=== PATIENT | male | born 1940 | race Caucasian/White ===

== ENCOUNTER → 2018-05-29 14:23 | Outpatient (CLI) | payer MEDICARE, OTHER ==
[2015-04-29 08:23] VITALS: BMI 29.4
[~2018-05-29 14:23] MED LIST: DIOVAN80 MG PO; FLUTICASONE PRO16 GM NASAL; SINGULAIR10 MG PO
== END | disposition home or self-care (01) ==
LOC: D.LABREF 14:23
DX: M17.11 Unilateral primary osteoarthritis, right knee (principal)

== ENCOUNTER 2018-07-31 10:00 | Inpatient (IN) | payer MEDICARE, OTHER ==
[~2018-07-31] VITALS: Ht 180.3 cm; Wt 92.7 kg
--- NOTE | ~2018-07-31 | OP ---
PATIENT NAME: BETY LOPEZ MEDICAL RECORD: [id number] :36 LOCATION:D[facility] [id number] ADMISSION DATE:08/05/18 SURGEON: ARGELIA CAMPBELL MD DATE OF OPERATION: 08/05/2018 PREOPERATIVE DIAGNOSIS: Severe degenerative arthritis of the right knee. POSTOPERATIVE DIAGNOSIS: Severe degenerative arthritis of the right knee. PROCEDURE: Right total knee arthroplasty. SURGEON: Argelia Campbell MD ANESTHESIA: General. INTRAOPERATIVE COMPLICATIONS: None. SUMMARY OF PATHOLOGIC FINDINGS: The patient was indeed found to have substantial osteoarthritis. IMPLANTS USED: A size 6 distal femur, a size 11 polyethylene insert, and a size 7 tibial baseplate. Press fit with patellar component of 33. OPERATIVE SUMMARY IN DETAIL: After obtaining the appropriate preoperative orthopedic surgery consent as well as anesthetic consultation, evaluation and clearance, the patient was brought to the operating room and placed on the operating table in the supine position. After general laryngeal mask airway was administered, tourniquet was placed on the proximal aspect of the right lower extremity. Right lower extremity was then prepped and draped in routine sterile fashion. The leg was elevated and exsanguinated, tourniquet was inflated to 350 mmHg. Routine midline incision was taken down for paramedian arthrotomy. Paramedian arthrotomy was performed. Patella was everted and the distal femur was exposed. Soft tissue excision was done in the usual fashion followed by intramedullary guidance for cutting the distal femur. Distal femur was cut followed by complete exposure of the proximal tibia. After complete exposure of the proximal tibia, the proximal tibia was cut. Measurements taken. It was felt that a size 7 was the best for a good peripheral fit. Chamfer cuts were made initially for a size 7 and then downsized to a size 6 for better anterior surface matching. The trial implants were put into place corresponding to the above-mentioned implants. A distal femoral and proximal tibial final adjustments were made. This was then followed by excision of the arthritic patella articular surface. Appropriate measurements were taken. Final patellar preparations were made as well. Copious pulsatile lavage irrigation was then followed by implantation of the press-fit components. After all components were put into place. The knee was taken through range of motion and found to be stable in all planes. Patellar preparations before closure included a gram of TXA intraarticularly and the periarticular soft tissues as well as a gram of vancomycin. The paramedian arthrotomy was closed with #2 Ethibond followed #1 Vicryl, 2-0 Vicryl and skin jillian. Sterile dressings were applied. The patient was awakened and taken to recovery in stable condition. All final needle and sponge counts were correct. TRANSINT:[id number] Voice Confirmation ID: [id number] DOCUMENT ID: [id number] OPERATIVE REPORT [id number] BETY LOPEZ MD, ARGELIA MO at 0844 CC: [id number] DICTATION DATE: 08/09/18 1316 LOCAL COMPANY HAZMAT DRIVER: 08/09/18 1347 DIS IN 08/08/18 [facility] [address] [place] [address]
--- NOTE | ~2018-07-31 | MORECARE ---
CASE MANAGEMENT DISCHARGE SUMMARY PATIENT: BETY LOPEZ UNIT: [id number] ADM DATE: 08/05/18 AGE: 77 : 38 SEX: M ROOM/BED: D.2209 AUTHOR: SAURABH ABERNATHY PHYSICIAN: REFERRING PHYSICIAN: ARGELIA CAMPBELL MD DATE OF SERVICE: 08/06/18 Discharge Plan Patient Name: BETY LOPEZ [facility] [facility] 1940 Planned Disposition: Anticipated Discharge Date: Discharge Date: Expected LOS: Initial Reviewer: [email or web address] Initial Review Date: 08/05/2018 Generated: 08/06/18 11:18 am Patient Name: BETY LOPEZ Page [id number] at 1018 All edits/amendments must be made on the electronic document DICTATION DATE: 08/06/18 1017 SERVICES ACCOUNT MANAGER: ANGELA 08/06/18 1017 RPT#: [id number] DC DATE: STATUS: ADM IN [facility] [address] [place] [address] END OF REPORT
--- NOTE | ~2018-07-31 | MORECARE ---
CASE MANAGEMENT DISCHARGE SUMMARY PATIENT: BETY LOPEZ UNIT: [id number] ADM DATE: 08/05/18 AGE: 77 : 38 SEX: M ROOM/BED: D.2209 AUTHOR: SAURABH ABERNATHY PHYSICIAN: REFERRING PHYSICIAN: ARGELIA CAMPBELL MD DATE OF SERVICE: 08/06/18 Discharge Plan Patient Name: [facility]Y [facility]OPEZ [facility] [facility] 1940 Planned Disposition: Home Anticipated Discharge Date: Discharge Date: Expected LOS: Initial Reviewer: [email or web address] Initial Review Date: 08/05/2018 Generated: 08/06/18 2:44 pm Last DP export: 08/06/18 9:18 Patient Name: BETY LOPEZ Page 51953 at 1344 All edits/amendments must be made on the electronic document DICTATION DATE: 08/06/18 1343 ELECTRIC CRANE OPERATOR: ANGELA 08/06/18 1343 RPT#: [id number] DC DATE: STATUS: ADM IN [facility] [address] [place] [address] END OF REPORT
--- NOTE | ~2018-07-31 | MORECARE ---
CASE MANAGEMENT DISCHARGE SUMMARY PATIENT: BETY LOPEZ UNIT: [id number] ADM DATE: 08/05/18 AGE: 77 : 38 SEX: M ROOM/BED: D.2209 AUTHOR: MICHELADOC PHYSICIAN: REFERRING PHYSICIAN: ARGELIA CAMPBELL MD DATE OF SERVICE: 08/06/18 Discharge Plan Patient Name: BETY LOPEZ Facility: [facility]:[place] : 1940 Planned Disposition: Home Anticipated Discharge Date: Discharge Date: Expected LOS: Initial Reviewer: [email or web address] Initial Review Date: 08/05/2018 Generated: 08/06/18 2:51 pm Comments DCP- Discharge Planning Updated by [email or web address]: Madeleine Navarrete on 08/06/18 12:[address] Patient Name: BETY LOPEZ Admission Status: Elective Accout number: [id number] Admission Date: 08-05-2018 : 1940 Admission Diagnosis: Attending: ARGELIA CAMPBELL Current LOS: 1 Anticipated DC Date: Planned Disposition: Home Primary Insurance: MEDICARE A & B Discharge Planning Comments: CM met with patient to assess discharge planning needs. Patient stated that prior to the hospitalization he was independent with his care at home. He lives with his in [facility]. He has a Bed Side commode and walker, he will need a CPM when he is discharged. Patient's is concerned about moving the CPM at home. I will verify with [facility] that they will deliver to house and set up. The would like the patient to go to [facility] and the patient would like to go home and do PT [facility]. We will wait to see hoe PT goes to determine what is safe for the patient. I explained that to both and patient. CM will continue to assist with DC planning Chief Electrician: Madeleine Navarrete DCPIA - Discharge Planning Initial Assessment Updated by [email or web address]: Madeleine Navarrete on 08/06/18 1:44 pm * Is the patient Alert and Oriented? Yes * How many steps to enter\exit or inside your home? * PCP [facility] ([facility]) * Pharmacy [facility] * Preadmission Environment Home with Family * ADLs Independent * Equipment Bedside Commode Rolling Walker * List name and contact numbers for known caregivers / representatives who currently or will assist patient after discharge: INDER LOPEZ () * Verbal permission to speak to the caregivers and representatives has been obtained from the patient. N/A * Community resources currently utilized None * Additional services required to return to the preadmission environment? Yes * Can the patient safely return to the preadmission environment? Yes * Has this patient been hospitalized within the prior 30 days at any hospital? No Last DP export: 08/06/18 12:44 Patient Name: BETY LOPEZ Page 25676 at 1351 All edits/amendments must be made on the electronic document DICTATION DATE: 08/06/18 135 SUPERVISOR RECORD PRESS: ANGELA 08/06/18 1351 RPT#: [id number] DC DATE: STATUS: ADM IN [facility] [address] [place] [address] END OF REPORT
--- NOTE | ~2018-07-31 | MORECARE ---
CASE MANAGEMENT DISCHARGE SUMMARY PATIENT: BETY LOPEZ UNIT: [id number] ADM DATE: 08/05/18 AGE: 77 : 38 SEX: M ROOM/BED: D.2209 AUTHOR: SAURABH ABERNATHY PHYSICIAN: REFERRING PHYSICIAN: ARGELIA CAMPBELL MD DATE OF SERVICE: 08/08/18 Discharge Plan Patient Name: BETY LOPEZ Facility: [facility]:[place] : 1940 Planned Disposition: Home Anticipated Discharge Date: Discharge Date: Expected LOS: Initial Reviewer: [email or web address] Initial Review Date: 08/05/2018 Generated: 08/08/18 10:15 am Comments DCP- Discharge Planning Updated by [email or web address]: Madeleine Navarrete on 08/08/18 8:[address] Patient Name: BETY LOPEZ Encounter No: [id number] : 1940 Primary Insurance: MEDICARE A & B Anticipated DC Date: Planned Disposition: Home External Planned Provider: : DCP follow-up note: Patient and family in agreement with discharge plan. IMM served and explained. Patient will be discharging to [facility] to room 304 to a skilled bed. I spoke to his . [facility] will be the one to transport patient. They are to be here at 10:30. Nurse will call report. Case management will follow and assist as needed. Madeleine Navarrete DCP- Discharge Planning Updated by [email or web address]: Madeleine Navarrete on 08/07/18 10:[address] REFERRAL SENT TO [facility], I SPOKE WITH [facility]ACE DCP- Discharge Planning Updated by [email or web address]: Madeleine Navarrete on 08/06/18 12:[address] Patient Name: BETY LOPEZ Admission Status: Elective Accout number: [id number] Admission Date: 08-05-2018 : 1940 Admission Diagnosis: Attending: ARGELIA CAMPBELL Current LOS: 1 Anticipated DC Date: Planned Disposition: Home Primary Insurance: MEDICARE A & B Discharge Planning Comments: CM met with patient to assess discharge planning needs. Patient stated that prior to the hospitalization he was independent with his care at home. He lives with his in [facility]. He has a Bed Side commode and walker, he will need a CPM when he is discharged. Patient's is concerned about moving the CPM at home. I will verify with [facility] that they will deliver to house and set up. The would like the patient to go to [facility]' and the patient would like to go home and do PT [facility] in [facility]. We will wait to see hoe PT goes to determine what is safe for the patient. I explained that to both and patient. CM will continue to assist with DC planning Harp Regulator: Madeleine Navarrete DCPIA - Discharge Planning Initial Assessment Updated by [email or web address]: Madeleine Navarrete on 08/06/18 1:44 pm * Is the patient Alert and Oriented? Yes * How many steps to enter\exit or inside your home? * PCP [facility] ([facility]) * Pharmacy [facility] * Preadmission Environment Home with Family * ADLs Independent * Equipment Bedside Commode Rolling Walker * List name and contact numbers for known caregivers / representatives who currently or will assist patient after discharge: INDER LOPEZ () * Verbal permission to speak to the caregivers and representatives has been obtained from the patient. N/A * Community resources currently utilized None * Additional services required to return to the preadmission environment? Yes * Can the patient safely return to the preadmission environment? Yes * Has this patient been hospitalized within the prior 30 days at any hospital? No Coverage Notice Reviewer: [id number] - Madeleine Navarrete Notice Issued Date-Time: 08/08/2018 8:50 Notice Type: IM Discharge Notice Notice Delivered To: Patient Relationship to Patient: Reporting Developer Name: Delivery Method: HAND - Hand Delivered Kerline Days: Prior Verbal Notification: Recipient Understood Notice: Yes Recipient Signature: Yes Med Rec Note Co-signed by Attending: Coverage Notice Comment: Last DP export: 08/07/18 10:10 Patient Name: BETY LOPEZ Page [id number] at 0916 All edits/amendments must be made on the electronic document DICTATION DATE: 08/08/18914 HISTOLOGIC AIDE: ANGELA 08/08/18914 RPT#: [id number] DC DATE: STATUS: ADM IN [facility] [address] [place] [address] END OF REPORT
--- NOTE | ~2018-07-31 | MORECARE ---
CASE MANAGEMENT DISCHARGE SUMMARY PATIENT: BETY LOPEZ UNIT: [id number] ADM DATE: 08/05/18 AGE: 77 : 38 SEX: M ROOM/BED: D.2209 AUTHOR: SAURABH ABERNATHY PHYSICIAN: REFERRING PHYSICIAN: ARGELIA CAMPBELL MD DATE OF SERVICE: 08/07/18 Discharge Plan Patient Name: BETY LOPEZ Facility: [facility]:[place] : 1940 Planned Disposition: Home Anticipated Discharge Date: Discharge Date: Expected LOS: Initial Reviewer: [email or web address] Initial Review Date: 08/05/2018 Generated: 08/07/18 12:09 pm Comments DCP- Discharge Planning Updated by [id number]: Madeleine Navarrete on 08/07/18 10:[address] REFERRAL SENT TO [facility], I SPOKE WITH GRACE DCP- Discharge Planning Updated by [email or web address]: Madeleine Navarrete on 08/06/18 12:[address] Patient Name: BETY LOPEZ Admission Status: Elective Accout number: [id number] Admission Date: 08-05-2018 : 1940 Admission Diagnosis: Attending: ARGELIA CAMPBELL Current LOS: 1 Anticipated DC Date: Planned Disposition: Home Primary Insurance: MEDICARE A & B Discharge Planning Comments: CM met with patient to assess discharge planning needs. Patient stated that prior to the hospitalization he was independent with his care at home. He lives with his in [facility]. He has a Bed Side commode and walker, he will need a CPM when he is discharged. Patient's is concerned about moving the CPM at home. I will verify with [facility] that they will deliver to house and set up. The would like the patient to go to [facility] and the patient would like to go home and do PT [facility] in [facility]. We will wait to see hoe PT goes to determine what is safe for the patient. I explained that to both and patient. CM will continue to assist with DC planning Furniture Builder: Madeleine Navarrete DCPIA - Discharge Planning Initial Assessment Updated by [email or web address]: Madeleine Navarrete on 08/06/18 1:44 pm * Is the patient Alert and Oriented? Yes * How many steps to enter\exit or inside your home? * PCP [facility] ([facility]) * Pharmacy [facility] * Preadmission Environment Home with Family * ADLs Independent * Equipment Bedside Commode Rolling Walker * List name and contact numbers for known caregivers / representatives who currently or will assist patient after discharge: INDER LOPEZ () * Verbal permission to speak to the caregivers and representatives has been obtained from the patient. N/A * Community resources currently utilized None * Additional services required to return to the preadmission environment? Yes * Can the patient safely return to the preadmission environment? Yes * Has this patient been hospitalized within the prior 30 days at any hospital? No External Providers External Provider: [facility] Next Contact Date: Service Request Date: Service Type: Resolution: Reviewer: Comments: Last DP export: 08/06/18 12:51 Patient Name: BETY LOPEZ Page 25792 at 1110 All edits/amendments must be made on the electronic document DICTATION DATE: 08/07/181108 TERMITE CONTROL SERVICE REPRESENTATIVE: ANGELA 08/07/181108 RPT#: [id number] DC DATE: STATUS: ADM IN [facility] [address] [place] [address] END OF REPORT
--- NOTE | ~2018-07-31 | MORECARE ---
CASE MANAGEMENT DISCHARGE SUMMARY PATIENT: BETY LOPEZ UNIT: [id number] ADM DATE: 08/05/18 AGE: 77 : 38 SEX: M ROOM/BED: D.2209 AUTHOR: SAURABH ABERNATHY PHYSICIAN: REFERRING PHYSICIAN: ARGELIA CAMPBELL MD DATE OF SERVICE: 08/12/18 Discharge Plan Patient Name: BETY LOPEZ Facility: [facility]:[place] : 1940 Planned Disposition: Home Anticipated Discharge Date: Discharge Date: 08/08/2018 Expected LOS: 0 Initial Reviewer: [email or web address] Initial Review Date: 08/05/2018 Generated: 08/12/18 11:13 am Comments DCP- Discharge Planning Updated by [email or web address]: Madeleine Navarrete on 08/08/18 8:[address] Patient Name: BETY LOPEZ Encounter No: [id number] : 1940 Primary Insurance: MEDICARE A & B Anticipated DC Date: Planned Disposition: Home External Planned Provider: : DCP follow-up note: Patient and family in agreement with discharge plan. IMM served and explained. Patient will be discharging to [facility] to room 304 to a skilled bed. I spoke to his . [facility] will be the one to transport patient. They are to be here at 10:30. Nurse will call report. Case management will follow and assist as needed. Madeleine Navarrete DCP- Discharge Planning Updated by [email or web address]: aMdeleine Navarrete on 08/07/18 10:[address] REFERRAL SENT TO [facility], I SPOKE WITH [facility]ACE DCP- Discharge Planning Updated by [email or web address]: Madeleine Navarrete on 08/06/18 12:[address] Patient Name: BETY LOPEZ Admission Status: Elective Accout number: [id number] Admission Date: 08-05-2018 : 1940 Admission Diagnosis: Attending: ARGELIA CAMPBELL Current LOS: 1 Anticipated DC Date: Planned Disposition: Home Primary Insurance: MEDICARE A & B Discharge Planning Comments: CM met with patient to assess discharge planning needs. Patient stated that prior to the hospitalization he was independent with his care at home. He lives with his in [facility]. He has a Bed Side commode and walker, he will need a CPM when he is discharged. Patient's is concerned about moving the CPM at home. I will verify with [facility] that they will deliver to house and set up. The would like the patient to go to [facility]' and the patient would like to go home and do PT [facility] in [facility]. We will wait to see hoe PT goes to determine what is safe for the patient. I explained that to both and patient. CM will continue to assist with DC planning Motion Picture Operator: Madeleine Navarrete DCPIA - Discharge Planning Initial Assessment Updated by [email or web address]: Madeleine Navarrete on 08/06/18 1:44 pm * Is the patient Alert and Oriented? Yes * How many steps to enter\exit or inside your home? * PCP [facility] ([facility]) * Pharmacy [facility] * Preadmission Environment Home with Family * ADLs Independent * Equipment Bedside Commode Rolling Walker * List name and contact numbers for known caregivers / representatives who currently or will assist patient after discharge: INDER LOPEZ () * Verbal permission to speak to the caregivers and representatives has been obtained from the patient. N/A * Community resources currently utilized None * Additional services required to return to the preadmission environment? Yes * Can the patient safely return to the preadmission environment? Yes * Has this patient been hospitalized within the prior 30 days at any hospital? No Coverage Notice Reviewer: [id number] - Madeleine Navarrete Notice Issued Date-Time: 08/08/2018 8:50 Notice Type: IM Discharge Notice Notice Delivered To: Patient Relationship to Patient: Senior Business Consultant Name: Delivery Method: HAND - Hand Delivered Kerline Days: Prior Verbal Notification: Recipient Understood Notice: Yes Recipient Signature: Yes Med Rec Note Co-signed by Attending: Coverage Notice Comment: Last DP export: 08/08/18 8:15 Patient Name: BETY LOPEZ Page 35765 at 1013 All edits/amendments must be made on the electronic document DICTATION DATE: 08/12/18 1012 EXPENDITURE REQUISITION CLERK: ANGELA 08/12/18 1012 RPT#: [id number] DC DATE:08/08/18 STATUS: DIS IN [facility] [address] [place] [address] END OF REPORT
[~2018-07-31 10:00] MED LIST changes: +ASPIRIN EC325 M1 PO; +DIOVAN160 MG PO; -DIOVAN80 MG PO; +FLOMAX0.4 MG PO; +LIPITOR20 MG PO; +NASONEX NASAL S17 GM NS; +PROSCAR5 MG PO; +VISINE15 ML EACH EYE; +XALATAN 0.0052.5 ML EACH EYE
[2018-07-31 11:38] LABS: APPEARANCE CLEAR (CLEAR); BILIRUBIN NEGATIVE (NEGATIVE); COLOR YELLOW (YELLOW); GLUCOSE NEGATIVE (NEGATIVE); KETONE NEGATIVE (NEGATIVE); NITRITE NEGATIVE (NEGATIVE); PROTEIN NEGATIVE (NEGATIVE); UROBILINOGEN NORMAL (NORMAL)
[2018-07-31 11:45] LABS: APTT 26.9 SECONDS (22.8-39.4); CALC OSMOLALITY 281 mosm/kg (275-300); CALCIUM 8.3 mg/dL (8.5-10.1); CARBON DIOXIDE 28.8 mmol/L (21.0-32.0); CHLORIDE - SERUM 105 mmol/L (98-107); CREATININE - SERUM 0.9 mg/dL (0.6-1.3); GLUCOSE 94 mg/dL (74-106); INR 1.06 (0.85-1.17); POTASSIUM - SERUM 4.1 mmol/L (3.5-5.1); PROTIME 13.4 SECONDS (11.6-15.0); SODIUM 142 mmol/L (136-145); UREA NITROGEN 11 mg/dL (7-18); eGFR NON AFRICAN AMERICAN 86 mL/min (90-120)
[2018-07-31 13:02] LABS: BASOPHILS 0.2 % (0-2); EOSINOPHILS 2.1 % (0-7); HEMATOCRIT 36.5 % (42.0-54.0); HEMOGLOBIN 11.7 g/dL (13.5-17.5); IMMATURE GRANULOCYTES 0.2 % (0-5); LYMPHOCYTES 26.1 % (15-50); MCH 28.3 pg (26.0-34.0); MCHC 32.1 g/dL (31.0-37.0); MCV 88.4 fL (80.0-100.0); MEAN PLATELET VOLUME 10.6 fL (7.4-10.4); NEUTROPHILS 59.4 % (40-80); PLATELET COUNT 241 10x3/uL (130-400); RBC 4.13 10x6/uL (4.20-6.10); RDW 13.9 % (11.5-14.5); WBC 5.6 10x3/uL (4.8-10.8)
[2018-08-05] MEDS ORDERED: PSEUDOEPHE30 MG/5 ML PO (08:09)
[2018-08-05 08:24] VITALS: BP 134/70
[2018-08-05 12:41] VITALS: BP 131/68
[2018-08-05 14:06] VITALS: BP 131/68; Ht 180.3 cm; Wt 92.7 kg
[2018-08-05 21:25] VITALS: BP 148/70
[2018-08-06 04:36] VITALS: BP 152/76
[2018-08-06 05:07] LABS: HEMATOCRIT 33.1 % (42.0-54.0); HEMOGLOBIN 10.7 g/dL (13.5-17.5); MCH 27.9 pg (26.0-34.0); MCHC 32.3 g/dL (31.0-37.0); MCV 86.4 fL (80.0-100.0); MEAN PLATELET VOLUME 10.2 fL (7.4-10.4); RBC 3.83 10x6/uL (4.20-6.10); RDW 13.9 % (11.5-14.5)
[2018-08-06 08:26] VITALS: BP 102/52
[2018-08-06 12:00] VITALS: BP 117/49
[2018-08-06 16:09] VITALS: BP 110/54
[2018-08-06 21:21] VITALS: BP 156/68
[2018-08-07 05:10] VITALS: BP 161/72
[2018-08-07 05:43] LABS: HEMATOCRIT 30.7 % (42.0-54.0); MCHC 32.6 g/dL (31.0-37.0); MEAN PLATELET VOLUME 10.4 fL (7.4-10.4); RBC 3.57 10x6/uL (4.20-6.10); RDW 13.8 % (11.5-14.5); WBC 7.2 10x3/uL (4.8-10.8)
[2018-08-07 08:30] VITALS: BP 158/66
[2018-08-07 12:45] VITALS: BP 121/67
[2018-08-07 20:49] VITALS: BP 156/70
[2018-08-08 04:35] VITALS: BP 126/57
[2018-08-08] MEDS ORDERED: ELIQUIS2.5 MG PO (08:05)
[2018-08-08] MEDS ORDERED: OXYCODONE-APAP1 TAB PO (08:06)
[2018-08-08] MEDS ORDERED: BACTRIM DS PO (08:23)
[2018-08-08 08:49] VITALS: BP 112/50
== END 2018-08-08 11:31 | disposition home or self-care (01) | DRG 470 ==
LOC: D.MS 08-05 07:30 → D.SDCHOLD 08-05 07:30 → D.MS 08-05 12:54
PROVIDERS: Orthopaedic Surgery
PROC: 0SRC0JZ Replacement of Right Knee Joint with Synthetic Substitute, Open Approach (ICD-10-PCS; principal; 2018-08-05 09:00)
DX: M17.11 Unilateral primary osteoarthritis, right knee (principal); I10 Essential (primary) hypertension; Z87.891 Personal history of nicotine dependence